=== PATIENT | male | born 1995 | race Two or more races ===

== ENCOUNTER 2017-11-19 20:18 | Inpatient (IN) | payer OTHER ==
[2017-11-19] MEDS: SOD CHLORIDE 0.9% 1,000 ML IV (23:20)
[2017-11-19] MEDS: morphine 2 MG INJ IV (23:21)
[2017-11-20 00:07] LABS: ADD UMIC YES; UR ASCORBIC ACID NEGATIVE (NEGATIVE); UR BILIRUBIN (Dip) NEGATIVE (NEGATIVE); UR BLOOD (Dip) 1+ mg/dL (NEGATIVE); UR CLARITY CLEAR (CLEAR); UR COLOR COLORLESS (YELLOW); UR GLUCOSE (Dip) NEGATIVE (NEGATIVE); UR KETONES (Dip) NEGATIVE (NEGATIVE); UR LEUKOCYTE ESTERASE (Dip) NEGATIVE Leu/ul (NEGATIVE); UR NITRITE (Dip) NEGATIVE (NEGATIVE); UR RBC 0 /HPF (0-5); UR SPECIFIC GRAVITY (Dip) 1.003 (1.003-1.030); UR TOTAL PROTEIN (Dip) NEGATIVE (NEGATIVE); UR UROBILINOGEN (Dip) NEGATIVE (NEGATIVE); UR WBC 2 /HPF (0-5)
[2017-11-20 00:16] LABS: SODIUM,URINE RANDOM 60 mmol/L (30-90)
[2017-11-20] MEDS: HYDROCODONE/APAP (5/325) TAB PO ×3 (01:20→10:25)
[2017-11-20] MEDS: morphine 2 MG INJ IV ×5 (03:49→21:33)
[2017-11-20 06:51] LABS: ADD MAN DIFF? NO
[2017-11-20 06:59] LABS: WHITE BLOOD COUNT 11.3 10^3/ul (4.8-10.8)
[2017-11-20 06:59] LABS: BASOPHILS % 0.2 % (0.0-2.0); EOSINOPHILS # 0.1 10^3/ul (0.0-0.5); EOSINOPHILS % 0.4 % (0.0-7.0); HEMATOCRIT 42.3 % (42.0-52.0); HEMOGLOBIN 13.8 g/dl (14.0-18.0); LYMPHOCYTES # 2.3 10^3/ul (0.8-2.9); LYMPHOCYTES % 20.3 % (15.0-51.0); MEAN CORPUSCULAR HEMOGLOBIN 27.1 pg (29.0-33.0); MEAN CORPUSCULAR HGB CONC 32.6 g/dl (32.0-37.0); MEAN CORPUSCULAR VOLUME 83.1 fl (82.0-101.0); MEAN PLATELET VOLUME 10.6 fl (7.4-10.4); MONOCYTE # 0.9 10^3/ul (0.3-0.9); MONOCYTES % 8.4 % (0.0-11.0); NEUTROPHIL # 7.9 10^3/ul (1.6-7.5); NEUTROPHILS % 70.3 % (39.0-77.0); PLATELET COUNT 262 10^3/UL (140-415); RED BLOOD COUNT 5.09 10^6/ul (4.70-6.10); RED CELL DISTRIBUTION WIDTH 14.1 % (11.5-14.5)
[2017-11-20 07:16] LABS: ALANINE AMINOTRANSFERASE 22 IU/L (13-69); ALBUMIN 4.1 g/dl (3.3-4.9); ALKALINE PHOSPHATASE 70 IU/L (42-121); ANION GAP 19 (8-16); ASPARTATE AMINO TRANSFERASE 18 IU/L (15-46); BILIRUBIN,INDIRECT 0.3 mg/dl (0-1.1); BILIRUBIN,TOTAL 0.3 mg/dl (0.2-1.3); BLOOD UREA NITROGEN 23 mg/dl (7-20); CALCIUM 9.1 mg/dl (8.4-10.2); CARBON DIOXIDE 24 mmol/L (21-31); CHLORIDE 107 mmol/L (97-110); CREATINE KINASE 80 IU/L (23-200); CREATININE 2.92 mg/dl (0.61-1.24); GLUCOSE 91 mg/dl (70-220); LIPASE 43 U/L (23-300); POTASSIUM 4.9 mmol/L (3.5-5.1); SODIUM 145 mmol/L (135-144); TOTAL PROTEIN 7.4 g/dl (6.1-8.1)
[2017-11-20] MEDS: SOD CHLORIDE 0.9% 1,000 ML IV ×2 (08:04→20:01)
[2017-11-20] MEDS: HYDROCODONE/APAP (10/325) TAB PO ×2 (14:59→20:01)
[2017-11-20] MEDS: DOCUSATE SODIUM 100 MG CAP PO (20:57)
[2017-11-20] MEDS: BISACODYL (EC) 5 MG TAB PO (20:58)
[2017-11-20] MEDS: ONDANSETRON 4 MG INJ IV (21:03)
[2017-11-21] MEDS: HYDROCODONE/APAP (10/325) TAB PO ×6 (00:16→22:10)
[2017-11-21] MEDS: morphine 2 MG INJ IV ×3 (01:34→10:38)
[2017-11-21] MEDS: PANTOPRAZOLE 40 MG INJ IV (06:01)
[2017-11-21] MEDS: SOD CHLORIDE 0.9% 1,000 ML IV ×3 (06:59→17:59)
[2017-11-21] MEDS: DOCUSATE SODIUM 100 MG CAP PO ×2 (09:01→21:13)
[2017-11-21] MEDS: BISACODYL (EC) 5 MG TAB PO ×2 (09:11→12:39)
[2017-11-21] MEDS: HYDROmorphONE 0.5 MG/0.5 ML SYG IV ×4 (12:35→23:17)
[2017-11-21] MEDS: ONDANSETRON 4 MG INJ IV ×2 (12:39→22:13)
[2017-11-21 16:15] LABS: ANION GAP 13 (8-16); BLOOD UREA NITROGEN 23 mg/dl (7-20); CALCIUM 9.3 mg/dl (8.4-10.2); CARBON DIOXIDE 30 mmol/L (21-31); CHLORIDE 107 mmol/L (97-110); CREATININE 2.97 mg/dl (0.61-1.24); GLUCOSE 84 mg/dl (70-220); SODIUM 144 mmol/L (135-144)
[2017-11-21 16:59] LABS: POTASSIUM 5.8 mmol/L (3.5-5.1)
[2017-11-21] MEDS: NA POLYST SULFON 15 GM/60 ML BTL PO ×2 (17:56→22:02)
[2017-11-21] MEDS: ACETAMINOPHEN 325 MG TAB PO (18:16)
[2017-11-21] MEDS: LUBIPROSTONE 24 MCG CAP PO (21:13)
[2017-11-22] MEDS: HYDROmorphONE 0.5 MG/0.5 ML SYG IV ×5 (02:22→21:04)
[2017-11-22] MEDS: HYDROCODONE/APAP (10/325) TAB PO ×5 (03:19→22:29)
[2017-11-22] MEDS: PANTOPRAZOLE 40 MG INJ IV (05:34)
[2017-11-22] MEDS: SOD CHLORIDE 0.9% 1,000 ML IV ×3 (05:59→16:04)
[2017-11-22 06:34] LABS: ADD MAN DIFF? NO
[2017-11-22 06:42] LABS: BASOPHILS % 0.2 % (0.0-2.0); EOSINOPHILS # 0.1 10^3/ul (0.0-0.5); EOSINOPHILS % 0.9 % (0.0-7.0); HEMOGLOBIN 12.5 g/dl (14.0-18.0); LYMPHOCYTES # 2.2 10^3/ul (0.8-2.9); LYMPHOCYTES % 26.2 % (15.0-51.0); MEAN CORPUSCULAR HEMOGLOBIN 27.2 pg (29.0-33.0); MEAN CORPUSCULAR HGB CONC 32.9 g/dl (32.0-37.0); MEAN CORPUSCULAR VOLUME 82.6 fl (82.0-101.0); MEAN PLATELET VOLUME 10.4 fl (7.4-10.4); MONOCYTE # 0.7 10^3/ul (0.3-0.9); MONOCYTES % 8.4 % (0.0-11.0); NEUTROPHIL # 5.4 10^3/ul (1.6-7.5); NEUTROPHILS % 64.1 % (39.0-77.0); PLATELET COUNT 242 10^3/UL (140-415); RED CELL DISTRIBUTION WIDTH 13.7 % (11.5-14.5)
[2017-11-22 06:42] LABS: WHITE BLOOD COUNT 8.5 10^3/ul (4.8-10.8)
[2017-11-22 07:27] LABS: ANION GAP 19 (8-16); BLOOD UREA NITROGEN 20 mg/dl (7-20); CARBON DIOXIDE 24 mmol/L (21-31); CHLORIDE 105 mmol/L (97-110); CREATININE 2.72 mg/dl (0.61-1.24); GLUCOSE 89 mg/dl (70-220); POTASSIUM 5.1 mmol/L (3.5-5.1); SODIUM 143 mmol/L (135-144)
[2017-11-22 07:44] LABS: MAGNESIUM 1.9 mg/dl (1.7-2.5)
[2017-11-22 07:44] LABS: PHOSPHORUS 6.6 mg/dl (2.5-4.9)
[2017-11-22] MEDS: LUBIPROSTONE 24 MCG CAP PO ×2 (08:35→22:28)
[2017-11-22] MEDS: DOCUSATE SODIUM 100 MG CAP PO ×2 (08:35→21:04)
[2017-11-22] MEDS: ONDANSETRON 4 MG INJ IV ×2 (09:10→16:11)
[2017-11-22] MEDS: SEVELAMER 800 MG TAB PO ×2 (11:57→17:47)
[2017-11-22] MEDS ORDERED: HYDROCODONE/APAP (10/325) TAB PO (14:30)
[2017-11-23] MEDS: HYDROmorphONE 0.5 MG/0.5 ML SYG IV ×6 (00:15→22:39)
[2017-11-23] MEDS: HYDROCODONE/APAP (10/325) TAB PO ×5 (03:01→23:58)
[2017-11-23] MEDS: SOD CHLORIDE 0.9% 1,000 ML IV (03:02)
[2017-11-23] MEDS: LACTULOSE 30ML CUP NGT (03:07)
[2017-11-23] MEDS: PANTOPRAZOLE 40 MG INJ IV (05:52)
[2017-11-23] MEDS: BISACODYL (EC) 5 MG TAB PO (05:52)
[2017-11-23 06:07] LABS: ADD MAN DIFF? NO
[2017-11-23 06:21] LABS: BASOPHILS % 0.3 % (0.0-2.0); EOSINOPHILS # 0.1 10^3/ul (0.0-0.5); EOSINOPHILS % 0.9 % (0.0-7.0); HEMATOCRIT 37.7 % (42.0-52.0); HEMOGLOBIN 12.1 g/dl (14.0-18.0); LYMPHOCYTES # 1.9 10^3/ul (0.8-2.9); MEAN CORPUSCULAR HEMOGLOBIN 26.8 pg (29.0-33.0); MEAN CORPUSCULAR HGB CONC 32.1 g/dl (32.0-37.0); MEAN CORPUSCULAR VOLUME 83.4 fl (82.0-101.0); MEAN PLATELET VOLUME 10.2 fl (7.4-10.4); MONOCYTE # 0.7 10^3/ul (0.3-0.9); MONOCYTES % 9.8 % (0.0-11.0); NEUTROPHIL # 4.6 10^3/ul (1.6-7.5); NEUTROPHILS % 62.9 % (39.0-77.0); PLATELET COUNT 244 10^3/UL (140-415); RED BLOOD COUNT 4.52 10^6/ul (4.70-6.10); RED CELL DISTRIBUTION WIDTH 13.3 % (11.5-14.5)
[2017-11-23 06:21] LABS: WHITE BLOOD COUNT 7.4 10^3/ul (4.8-10.8)
[2017-11-23 06:35] LABS: ANION GAP 12 (8-16); BLOOD UREA NITROGEN 19 mg/dl (7-20); CARBON DIOXIDE 29 mmol/L (21-31); CHLORIDE 109 mmol/L (97-110); CREATININE 2.31 mg/dl (0.61-1.24); GLUCOSE 96 mg/dl (70-220); POTASSIUM 4.9 mmol/L (3.5-5.1); SODIUM 145 mmol/L (135-144)
[2017-11-23] MEDS: SEVELAMER 800 MG TAB PO ×3 (08:45→17:42)
[2017-11-23] MEDS: LUBIPROSTONE 24 MCG CAP PO ×2 (08:45→22:40)
[2017-11-23] MEDS: DOCUSATE SODIUM 100 MG CAP PO ×2 (08:45→22:40)
[2017-11-23] MEDS: METHYLNALTREXONE 12 MG/0.6 ML VIAL SC (10:29)
[2017-11-23] MEDS: ONDANSETRON 4 MG INJ IV ×2 (10:56→22:46)
[2017-11-23 19:04] LABS: HAAIG REFLEX REFLEX FILED
[2017-11-23 19:43] LABS: HEPATITIS B SURFACE ANTIGEN NEGATIVE (NEGATIVE)
[2017-11-23 20:01] LABS: HEPATITIS B CORE ANTIBODY NEGATIVE (NEGATIVE); HEPATITIS C VIRAL ANTIBODY NEGATIVE (NEGATIVE)
[2017-11-23 20:41] LABS: ADD UMIC YES; UR ASCORBIC ACID NEGATIVE (NEGATIVE); UR BILIRUBIN (Dip) NEGATIVE (NEGATIVE); UR BLOOD (Dip) 1+ mg/dL (NEGATIVE); UR CLARITY CLEAR (CLEAR); UR COLOR COLORLESS (YELLOW); UR GLUCOSE (Dip) NEGATIVE (NEGATIVE); UR KETONES (Dip) NEGATIVE (NEGATIVE); UR LEUKOCYTE ESTERASE (Dip) NEGATIVE Leu/ul (NEGATIVE); UR NITRITE (Dip) NEGATIVE (NEGATIVE); UR RBC 2 /HPF (0-5); UR SPECIFIC GRAVITY (Dip) 1.003 (1.003-1.030); UR TOTAL PROTEIN (Dip) NEGATIVE (NEGATIVE); UR UROBILINOGEN (Dip) NEGATIVE (NEGATIVE); UR WBC 0 /HPF (0-5)
[2017-11-23 20:44] LABS: CREATININE,URINE RANDOM 20.36 mg/dl (20-370); PROTEIN/CREAT RATIO 0.68 RATIO
[2017-11-23 20:46] LABS: SODIUM,URINE RANDOM 72 mmol/L (30-90)
[2017-11-23 20:46] LABS: CREATININE,URINE RANDOM 19.37 mg/dl (20-370)
[2017-11-24] MEDS: HYDROCODONE/APAP (10/325) TAB PO ×4 (04:12→17:22)
[2017-11-24] MEDS: ONDANSETRON 4 MG INJ IV ×2 (05:04→12:12)
[2017-11-24] MEDS: HYDROmorphONE 0.5 MG/0.5 ML SYG IV ×2 (05:04→12:02)
[2017-11-24] MEDS: BISACODYL (EC) 5 MG TAB PO ×2 (05:09→17:22)
[2017-11-24 05:49] LABS: ALANINE AMINOTRANSFERASE 32 IU/L (13-69); ALBUMIN 4.4 g/dl (3.3-4.9); ALBUMIN/GLOBULIN RATIO 1.25; ALKALINE PHOSPHATASE 71 IU/L (42-121); ANION GAP 17 (8-16); ASPARTATE AMINO TRANSFERASE 22 IU/L (15-46); BILIRUBIN,INDIRECT 0.2 mg/dl (0-1.1); BILIRUBIN,TOTAL 0.2 mg/dl (0.2-1.3); BLOOD UREA NITROGEN 18 mg/dl (7-20); CALCIUM 9.7 mg/dl (8.4-10.2); CARBON DIOXIDE 28 mmol/L (21-31); CHLORIDE 103 mmol/L (97-110); CREATININE 2.07 mg/dl (0.61-1.24); GLUCOSE 108 mg/dl (70-220); POTASSIUM 4.5 mmol/L (3.5-5.1); SODIUM 143 mmol/L (135-144); TOTAL PROTEIN 7.9 g/dl (6.1-8.1)
[2017-11-24] MEDS: SEVELAMER 800 MG TAB PO ×3 (07:59→17:22)
[2017-11-24] MEDS: DOCUSATE SODIUM 100 MG CAP PO (08:21)
[2017-11-24] MEDS: LUBIPROSTONE 24 MCG CAP PO (08:21)
[2017-11-24] MEDS: LACTULOSE 30ML CUP NGT (17:21)
== END 2017-11-24 19:48 | disposition home or self-care (01) | DRG 684 ==
LOC: PP2 20:18
PROVIDERS: Internal Medicine Nephrology
DX: N17.9 Acute kidney failure, unspecified (principal); E83.39 Other disorders of phosphorus metabolism; K59.00 Constipation, unspecified; K29.70 Gastritis, unspecified, without bleeding; R10.31 Right lower quadrant pain; R11.2 Nausea with vomiting, unspecified
CPT/HCPCS: 74018; 80048; 80053; 80076; 81001; 81003; 82550; 82570; 83690; 83735; 84100; 84155; 84300; 85025; 86704; 86709; 86803; 87340; 89190

== ENCOUNTER 2018-02-14 15:12 | Emergency (ER) | payer OTHER ==
[2018-02-14 16:08] LABS: URINE BLOOD (Dip) POC Negative (NEGATIVE); URINE GLUCOSE (Dip) POC Negative (NEGATIVE); URINE KETONES (Dip) POC Negative (NEGATIVE); URINE LEUKOCYTE EST (Dip) POC Negative (NEGATIVE); URINE NITRITE (Dip) POC Negative (NEGATIVE); URINE TOTAL PROTEIN POC Negative (NEGATIVE)
[2018-02-14] MEDS: KETOROLAC 30 MG INJ IM (16:32)
== END 2018-02-14 17:21 | disposition home or self-care (01) ==
LOC: FTE 15:12
DX: S39.92XA Unspecified injury of lower back, initial encounter (principal); F17.210 Nicotine dependence, cigarettes, uncomplicated; V49.50XA Passenger injured in collision with unspecified motor vehicles in traffic accident, initial encounter
CPT/HCPCS: 72131; 81003; 96372; 99285-25

== ENCOUNTER 2019-02-13 14:02 | Emergency (ER) | payer OTHER ==
[2019-02-13] MEDS: IBUPROFEN 600 MG TAB PO (15:14)
[2019-02-13] MEDS: CYCLOBENZAPRINE 10 MG TAB PO (15:14)
[2019-02-13] MEDS: ACETAMINOPHEN 500 MG TAB PO (15:25)
== END 2019-02-13 15:51 | disposition home or self-care (01) ==
LOC: FTE 14:02
DX: S46.001A Unspecified injury of muscle(s) and tendon(s) of the rotator cuff of right shoulder, initial encounter (principal); J02.9 Acute pharyngitis, unspecified; F17.210 Nicotine dependence, cigarettes, uncomplicated; X58.XXXA Exposure to other specified factors, initial encounter; Y92.328 Other athletic field as the place of occurrence of the external cause
CPT/HCPCS: 99283; Z7502